=== PATIENT | female | born 1995 | race Caucasian/White ===

== ENCOUNTER 2018-04-27 02:12 | Emergency (ER) | payer OTHER ==
[~2018-04-27] VITALS: Ht 167.6 cm; Wt 50.0 kg
[2018-04-27] MEDS ORDERED: CIPRO500 MG PO (04:38)
[2018-04-27] MEDS ORDERED: ZOFRAN4 MG PO (04:38)
== END 2018-04-27 04:52 | disposition home or self-care (01) ==
LOC: ED 02:12
DX: N12 Tubulo-interstitial nephritis, not specified as acute or chronic (principal); F17.200 Nicotine dependence, unspecified, uncomplicated; Z88.0 Allergy status to penicillin
CPT/HCPCS: 74176; 80053; 81001; 84703; 85025; 96374; 96375; 99284-25; J1885; J2405; J7030

== ENCOUNTER 2019-11-02 20:05 | Inpatient (IN) | payer OTHER ==
[~2019-11-02] VITALS: Ht 165.1 cm; Wt 69.0 kg
[~2019-11-02 20:05] MED LIST: CIPRO500 MG PO; ZOFRAN4 MG PO
--- NOTE | 2019-11-02 20:46 | PR ---
[facility] [address] [facility] [place], [place] [address] Signed Progress Notes IP Datetime Report Generated by CPN: 11/02/2019 20:46 PROGRESS NOTES: [id number] Impression: Normal progression of labor Procedures: Artificial ROM Plan: Continue present management; Anticipate Vaginal Delivery VITAL SIGNS: [id number] Vital Signs: Reviewed; Within Normal Limits EXAM: [id number] Dilatation: 8.0 Effacement: 90 Station: -1 Uterine Contractions: every 2-3 minutes MEMBRANES: [id number] Membrane Status: Ruptured Amniotic Fluid Color: Clear ROM Note: AROM with moderate clear fluid Comments: Doing well Fetus A: [id number] FHR Baseline: 140 Variability: Moderate 6-25bpm Accelerations: 15X15 Presentation: Vertex Fetus B: [id number] Signing Physician: Osmin Baldwin MD Copies: ~ *Electronically Signed* 11/02/192045 OSMIN BALDWIN MD PATIENT NAME: CLAUDIA MILLER PROGRESS NOTE DATE OF : 93 PHYSICIAN: OSMIN BALDWIN MD RPT #: [id number] REPORT IS CONFIDENTIAL AND NOT TO BE RELEASED WITHOUT AUTHORIZATION
[2019-11-02] MEDS ORDERED: PRENATAL VITAM1 EAC6 PO (23:23)
--- NOTE | 2019-11-03 08:35 | PR ---
[facility] [address] [facility] [place], [place] [address] Signed PP Progress Notes Datetime Report Generated by CPN: 11/03/2019 08:35 SUBJECTIVE: [id number] Pain: Within normal limits Nausea/Vomiting: Denies Vital Signs: [id number] Vital Signs: Reviewed; Within Normal Limits EXAM: [id number] Abdomen/Uterus: Normal Lochia: Normal Extremities: Normal IMPRESSION/PLAN/PROCEDURES: [id number] Impression: Normal progression Plan: Continue present management Procedures: None Progress Notes: Doing well, without complaint. Signing Physician: Osmin Baldwin MD Copies: ~ *Electronically Signed* 11/03/19 0835 OSMIN BALDWIN MD PATIENT NAME: CLAUDIA MILLER PROGRESS NOTE DATE OF : 93 PHYSICIAN: OSMIN BALDWIN MD RPT #: [id number] REPORT IS CONFIDENTIAL AND NOT TO BE RELEASED WITHOUT AUTHORIZATION
--- NOTE | 2019-11-04 08:36 | PR ---
[facility] [facility] [address] [facility] [place] [address] Signed PP Progress Notes Datetime Report Generated by CPN: 11/04/2019 08:36 SUBJECTIVE: [id number] Pain: Within normal limits Nausea/Vomiting: Denies Vital Signs: [id number] Vital Signs: Reviewed; Within Normal Limits Notable Details: 11.5/34.0 EXAM: [id number] Abdomen/Uterus: Normal Lochia: Normal Extremities: Normal IMPRESSION/PLAN/PROCEDURES: [id number] Impression: Normal progression Plan: Discharge Procedures: None Progress Notes: Doing well, without complaint, ready to go home. Signing Physician: Osmin Baldwin MD Copies: ~ *Electronically Signed* 11/04/19 0836 OSMIN BALDWIN MD PATIENT NAME: CLAUDIA MILLER PROGRESS NOTE DATE OF : 93 PHYSICIAN: OSMIN BALDWIN MD RPT #: [id number] REPORT IS CONFIDENTIAL AND NOT TO BE RELEASED WITHOUT AUTHORIZATION
== END 2019-11-04 09:55 | disposition home or self-care (01) | DRG 806 ==
LOC: FBCO 20:05 → FBC 20:24
PROVIDERS: ADMIT Obstetrics & Gynecology
PROC: 10E0XZZ Delivery of Products of Conception, External Approach (ICD-10-PCS; principal; 2019-11-02)
PROC: 0UQMXZZ Repair Vulva, External Approach (ICD-10-PCS; 2019-11-02)
PROC: 10907ZC Drainage of Amniotic Fluid, Therapeutic from Products of Conception, Via Natural or Artificial Opening (ICD-10-PCS; 2019-11-02)
DX: O62.3 Precipitate labor (principal); O99.324 Drug use complicating childbirth; Z37.0 Single live birth; Z3A.40 40 weeks gestation of pregnancy; F12.90 Cannabis use, unspecified, uncomplicated; O71.82 Other specified trauma to perineum and vulva; Z87.891 Personal history of nicotine dependence; Z88.0 Allergy status to penicillin
CPT/HCPCS: 85027; A9270; J2590

== ENCOUNTER 2020-06-22 13:21 | Emergency (ER) | payer OTHER ==
[~2020-06-22] VITALS: Ht 165.1 cm; Wt 49.9 kg
[~2020-06-22 13:21] MED LIST changes: +PRENATAL VITAM1 EAC6 PO
[2020-06-22] MEDS ORDERED: REGLAN10 MG PO (19:02)
== END 2020-06-22 19:15 | disposition home or self-care (01) ==
LOC: ED 13:21
DX: O21.0 Mild hyperemesis gravidarum (principal); O99.281 Endocrine, nutritional and metabolic diseases complicating pregnancy, first trimester; E87.6 Hypokalemia; E86.0 Dehydration; Z3A.01 Less than 8 weeks gestation of pregnancy; Z88.0 Allergy status to penicillin
CPT/HCPCS: 80053; 81001; 83735; 84702; 84703; 85025; 96374; 99284-25; J2765; J7030; J7042

== ENCOUNTER 2021-01-27 19:47 | Inpatient (IN) | payer OTHER ==
[~2021-01-27] VITALS: Ht 165.1 cm; Wt 68.5 kg
[~2021-01-27 19:47] MED LIST changes: +REGLAN10 MG PO
--- NOTE | 2021-01-28 07:43 | PR ---
[facility] [address] [facility] [place], [place] [address] Signed Progress Notes IP Datetime Report Generated by CPN: 01/28/2021 07:43 PROGRESS NOTES: [id number] Procedures: Artificial ROM Plan: Continue Present Management; Anticipate Vaginal Delivery VITAL SIGNS: [id number] Vital Signs: Reviewed; Within Normal Limits EXAM: [id number] Dilatation: 8.0 Effacement: 90 Station: -2 Contractions: every 2 minutes MEMBRANES: [id number] Membranes Status: Ruptured Comments: Comfortable with Epidural, will continue monitoring, expect vaginal delivery soon. FETUS A: [id number] FHR Baseline: 120 Variability: Moderate 6-25bpm Accelerations: 15X15 Presentation: Vertex FETUS B: [id number] Signing Physician: Osmin Baldwin MD Copies: ~ *Electronically Signed* 01/28/21 0743 OSMIN BALDWIN MD PATIENT NAME: CLAUDIA MILLER PROGRESS NOTE DATE OF : 93 PHYSICIAN: OSMIN BALDWIN MD RPT #: [id number] REPORT IS CONFIDENTIAL AND NOT TO BE RELEASED WITHOUT AUTHORIZATION
--- NOTE | 2021-01-29 10:53 | PR ---
[facility] [address] [facility] [place], [place] [address] Signed PP Progress Notes Datetime Report Generated by CPN: 01/29/2021 10:52 SUBJECTIVE: [id number] Pain: Within Normal Limits Nausea/Vomiting: Denies Vital Signs: [id number] Vital Signs: Reviewed; Within Normal Limits Abdomen/Uterus: Normal Lochia: Normal Extremities: Normal IMPRESSION/PLAN/PROCEDURES: [id number] Impression: Normal Progression Plan: Discharge Procedures: None Progress Notes: Doing well, without complaint, wants to go home. Signing Physician: Osmin Baldwin MD Copies: ~ *Electronically Signed* 01/29/21 1052 OSMIN BALDWIN MD PATIENT NAME: CLAUDIA MILLER PROGRESS NOTE DATE OF : 93 PHYSICIAN: OSMNI BALDWIN MD RPT #: [id number] REPORT IS CONFIDENTIAL AND NOT TO BE RELEASED WITHOUT AUTHORIZATION
== END 2021-01-29 14:10 | disposition home or self-care (01) | DRG 807 ==
LOC: FBC 01-28 00:08
PROVIDERS: ADMIT General Practice; ATTEND General Practice
PROC: 10E0XZZ Delivery of Products of Conception, External Approach (ICD-10-PCS; principal; 2021-01-28)
PROC: 10907ZC Drainage of Amniotic Fluid, Therapeutic from Products of Conception, Via Natural or Artificial Opening (ICD-10-PCS; 2021-01-28)
PROC: 00HU33Z Insertion of Infusion Device into Spinal Canal, Percutaneous Approach (ICD-10-PCS; 2021-01-28)
PROC: 3E0R3BZ Introduction of Anesthetic Agent into Spinal Canal, Percutaneous Approach (ICD-10-PCS; 2021-01-28)
PROC: 3E0R3NZ Introduction of Analgesics, Hypnotics, Sedatives into Spinal Canal, Percutaneous Approach (ICD-10-PCS; 2021-01-28)
PROC: 0HQ9XZZ Repair Perineum Skin, External Approach (ICD-10-PCS; 2021-01-28)
PROC: 3E0P7VZ Introduction of Hormone into Female Reproductive, Via Natural or Artificial Opening (ICD-10-PCS; 2021-01-28)
PROC: 3E033VJ Introduction of Other Hormone into Peripheral Vein, Percutaneous Approach (ICD-10-PCS; 2021-01-28)
DX: O24.420 Gestational diabetes mellitus in childbirth, diet controlled (principal); Z37.0 Single live birth; Z3A.39 39 weeks gestation of pregnancy; O70.0 First degree perineal laceration during delivery; Z88.0 Allergy status to penicillin; Z87.891 Personal history of nicotine dependence; Z67.10 Type A blood, Rh positive; Z20.822 Contact with and (suspected) exposure to COVID-19
CPT/HCPCS: 01960; 85027; A9270; J2795; J3010

== ENCOUNTER 2021-03-26 15:48 | Emergency (ER) | payer OTHER ==
[~2021-03-26] VITALS: Ht 152.4 cm; Wt 62.4 kg
[2021-03-26] MEDS ORDERED: ZITHROMAX250 MG PO (16:38)
[2021-03-26] MEDS ORDERED: HYDROCODON-ACE1 EA10 PO (16:38)
== END 2021-03-26 16:55 | disposition home or self-care (01) ==
LOC: ED 15:48
DX: H73.012 Bullous myringitis, left ear (principal); Z87.891 Personal history of nicotine dependence; Z88.0 Allergy status to penicillin
CPT/HCPCS: 99282

== ENCOUNTER 2025-03-05 08:46 | Emergency (ER) | payer OTHER ==
[~2025-03-05] VITALS: Ht 152.4 cm; Wt 56.2 kg
[~2025-03-05 08:46] MED LIST changes: +HYDROCODON-ACE1 EA10 PO; +ZITHROMAX250 MG PO
--- OUTSIDE RECORDS SUMMARY | 2025-03-05 08:53 | XMS ---
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 Alia VISIT COUNT (12 MO.) Cheyenne Gibbs TOTAL 1 NOTE: Visits indicate total known visits. ED/UCC VISIT TRACKING (12 MO.) 03/05/2025 08:47 [facility] TYPE: Emergency COMPLAINT: - VOMITING INPATIENT VISIT TRACKING (12 MO.) No inpatient visits to display in this time frame [email or web address]
[2025-03-05] MEDS ORDERED: SODIUM CHLORIDE 0.9% 1,000 ML IV ONE (09:00)
[2025-03-05] MEDS ORDERED: METOCLOPRAMIDE HCL 10 MG/2 ML SDV IV ONE (09:15)
[2025-03-05 09:16] LABS: BASOPHILS 0.4 % (0.1-1.2); EOSINOPHILS 1.3 % (0.7-5.8); LYMPHOCYTES 24.7 % (19.3-51.7); MCH 30.5 PG (25.6-32.2); MCHC 34.3 g/dL (32.2-35.5); MCV 88.7 fL (79.4-94.8); MONOCYTES 5.5 % (4.7-12.5); NEUTROPHILS 67.8 % (34.0-71.1); RBC 4.53 M/uL (3.93-5.22)
[2025-03-05] MEDS ORDERED: FAMOTIDINE 20 MG/ 2 ML VIAL IV ONE (09:30)
[2025-03-05 09:40] LABS: ALT (SGPT) 35.0 U/L (14-59); AST (SGOT) 16.0 U/L (15-37); GLOMERULAR FILTRATION RATE,EST 122.0 mL/min (>60); PROTEIN, TOTAL 7.5 g/dL (6.4-8.2); UREA NITROGEN 11.0 mg/dL (7-18)
[2025-03-05] MEDS ORDERED: REGLAN10 MG PO (10:18)
[2025-03-05] MEDS ORDERED: PROMETHAZINE HC25 M1 PO (10:18)
[2025-03-05 10:34] LABS: BLOOD/HGB, URINE NEGATIVE (Negative); KETONE, URINE SMALL (Negative); LEUK ESTERASE, URINE NEGATIVE (negative); NITRITE, URINE NEGATIVE (negative)
[2025-03-05 11:04] VITALS: BP 92/57
== END 2025-03-05 11:05 | disposition home or self-care (01) ==
LOC: ED 08:46
PROVIDERS: Emergency Medicine
DX: O21.0 Mild hyperemesis gravidarum (principal); Z3A.01 Less than 8 weeks gestation of pregnancy; Z88.0 Allergy status to penicillin; Z79.2 Long term (current) use of antibiotics; Z79.899 Other long term (current) drug therapy
CPT/HCPCS: 36415; 80053; 81003; 83690; 83735; 84702; 85025; 96361; 96374; 96375; 99283-25; J1200; J2765; J7030